=== PATIENT | female | born 1960 | race Caucasian/White ===

== ENCOUNTER 2021-02-09 13:41 | Emergency (ER) | payer BC ==
--- NOTE | 2021-02-09 14:16 | EDM.PDOC ---
ED HPI GENERAL MEDICAL PROBLEM - General Chief Complaint: Chest Pain Stated Complaint: CHEST PRESSURE Time Seen by Provider: 02/09/21 13:50 Source of Information: Reports: Patient, Family History Limitations: Reports: No Limitations - History of Present Illness INITIAL COMMENTS - FREE TEXT/NARRATIVE: 60-year-old female arrives with central chest pressure, substernal, for the last 36 hours. It started early in the morning yesterday and has been persistent. She has had this before but it is resolved much quicker, this time it was lasting too long so she wanted to check. She tried some antacid which did not help. She does not have pain, only substernal pressure, no radiation, no shortness of breath or cough, no diaphoresis. Pressure is a "5 out of 10", it is not worse with movement or activity. She has intermittent dizziness or lightheaded sensation but no other symptoms Onset: Unknown/Unsure (Woke up with symptoms yesterday morning) Duration: Hour(s): (At least 30 hours) Location: Reports: Chest Quality: Reports: Pressure Improves with: Reports: None Worsens with: Reports: None Associated Symptoms: Reports: No Other Symptoms Chest Pain Score (Numeric/FACES): 5 - Related Data Allergies Allergy/AdvReac Type Severity Reaction Status Date / Time No Known Allergies Allergy Verified 02/09/21 13:50 Home Meds: Home Meds *Calcium, Mag, Zinc 1 tab PO DAILY 02/09/21 [History] Cholecalciferol (Vitamin D3) [Vitamin D3] 2,000 unit PO DAILY 02/09/21 [History] Fish Oil/[place]-3 Fatty Acids [Fish Oil 1,000 MG] 1,000 mg PO DAILY 02/09/21 [History] Loratadine [Claritin] 10 mg PO DAILY 02/09/21 [History] Multivit-Min/Folic Acid/Biotin [Hair, Skin and Nails Caplet] 1 tab PO DAILY 02/09/21 [History] Multivitamin 1 tab PO DAILY 02/09/21 [History] Turmeric/Turmeric Root Extract [Turmeric 500 mg Capsule] 1 tab PO DAILY 02/09/21 [History] Past Medical History Musculoskeletal History: Reports: Fracture Social & Family History - Tobacco Use Tobacco Use Status *Q: Heavy Tobacco User Years of Tobacco use: 40 Packs/Tins Daily: 0.5 - Caffeine Use Caffeine Use: Reports: Coffee - Alcohol Use Days Per Week of Alcohol Use: 5 Number of Drinks Per Day: 5 Total Drinks Per Week: 25 - Recreational Drug Use Recreational Drug Use: No ED ROS GENERAL - Review of Systems Review Of Systems: See Below Constitutional: Denies: Fever, Chills, Malaise HEENT: Reports: No Symptoms Respiratory: Denies: Shortness of Breath, Cough, Sputum Cardiovascular: Reports: Lightheadedness, Palpitations (Occasional). Denies: Dyspnea on Exertion ED EXAM, GENERAL - Physical Exam Exam: See Below Exam Limited By: No Limitations General Appearance: Alert, No Apparent Distress Eye Exam: Bilateral Eye: Normal Inspection Head: Atraumatic Neck: Supple, Non-Tender Respiratory/Chest: No Respiratory Distress, Lungs Clear Cardiovascular: Regular Rate, Rhythm, Tachycardia (Mild tachycardia), Extra Beats (Occasional) GI/Abdominal: Soft, Non-Tender Extremities: Normal Inspection. No: Pedal Edema Neurological: Alert, Oriented, No Motor/Sensory Deficits Psychiatric: Anxious Skin Exam: Warm, Dry #1 Interpretation EKG Date: 02/09/21 Time: 13:45 Rhythm: NSR Rate (Beats/Min): 110 QRS: Normal ST-T: Normal Comparison: NA - No Prior EKG EKG Interpretation Comments: EKG shows mild sinus tachycardia, no other abnormality. Course - Vital Signs Last Recorded V/S: Last Vital Signs Temp 97.6 F 02/09/21 13:46 Pulse 85 02/09/21 14:45 Resp 15 02/09/21 14:45 BP 129/76 02/09/21 14:45 Pulse Ox 98 02/09/21 14:45 - Orders/Labs/Meds Orders: Active Orders 24 hr Category Date Time Status EKG 12 Lead [EK] Routine Ther 02/09/21 14:11 Ordered Labs: Laboratory Tests 02/09/21 02/09/21 02/09/21 Range/Units 14:31 14:31 14:31 WBC 10.5 (4.5-11.0) K/uL RBC 4.19 (3.30-5.50) M/uL Hgb 13.7 (12.0-15.0) g/dL Hct 40.9 (36.0-48.0) % MCV 98 (80-98) fL MCH 33 H (27-31) pg MCHC 34 (32-36) % Plt Count 346 (150-400) K/uL Neut % (Auto) 76 H (36-66) % Lymph % (Auto) 16 L (24-44) % [place] % (Auto) 7 H (2-6) % Eos % (Auto) 0 L (2-4) % Baso % (Auto) 0 (0-1) % D-Dimer, Quantitative 355.97 (0.0-500.0) ng/mL Sodium 143 (140-148) mmol/L Potassium 4.2 (3.6-5.2) mmol/L Chloride 101 (100-108) mmol/L Carbon Dioxide 27 (21-32) mmol/L Anion Gap 15.0 H (5.0-14.0) mmol/L BUN 13 (7-18) mg/dL Creatinine 0.8 (0.6-1.0) mg/dL Est Cr Clr Drug Dosing 61.86 mL/min Estimated GFR (MDRD) > 60 (>60) Glucose 126 H (74-106) mg/dL Calcium 9.7 (8.5-10.1) mg/dL Total Bilirubin 0.3 (0.2-1.0) mg/dL AST 18 (15-37) U/L ALT 25 (12-78) U/L Alkaline Phosphatase 140 H (46-116) U/L Troponin I < 0.017 (0.000-0.056) ng/mL Total Protein 7.4 (6.4-8.2) g/dL Albumin 4.0 (3.4-5.0) g/dL Globulin 3.4 (2.3-3.5) g/dL Albumin/Globulin Ratio 1.2 (1.2-2.2) Lipase 95 (73-393) U/L TSH, Ultra Sensitive (0.358-3.740) uIU/mL 02/09/21 Range/Units 14:31 WBC (4.5-11.0) K/uL RBC (3.30-5.50) M/uL Hgb (12.0-15.0) g/dL Hct (36.0-48.0) % MCV (80-98) fL MCH (27-31) pg MCHC (32-36) % Plt Count (150-400) K/uL Neut % (Auto) (36-66) % Lymph % (Auto) (24-44) % [place] % (Auto) (2-6) % Eos % (Auto) (2-4) % Baso % (Auto) (0-1) % D-Dimer, Quantitative (0.0-500.0) ng/mL Sodium (140-148) mmol/L Potassium (3.6-5.2) mmol/L Chloride (100-108) mmol/L Carbon Dioxide (21-32) mmol/L Anion Gap (5.0-14.0) mmol/L BUN (7-18) mg/dL Creatinine (0.6-1.0) mg/dL Est Cr Clr Drug Dosing mL/min Estimated GFR (MDRD) (>60) Glucose (74-106) mg/dL Calcium (8.5-10.1) mg/dL Total Bilirubin (0.2-1.0) mg/dL AST (15-37) U/L ALT (12-78) U/L Alkaline Phosphatase (46-116) U/L Troponin I (0.000-0.056) ng/mL Total Protein (6.4-8.2) g/dL Albumin (3.4-5.0) g/dL Globulin (2.3-3.5) g/dL Albumin/Globulin Ratio (1.2-2.2) Lipase (73-393) U/L TSH, Ultra Sensitive 1.108 (0.358-3.740) uIU/mL - Re-Assessments/Exams Free Text/Narrative Re-Assessment/Exam: 02/09/21 14:16 EKG is basically normal other than mild tachycardia. She will be sent back for two-view chest x-ray, and a CBC, CMP, troponin, D-dimer, lipase and TSH were drawn. 02/09/21 15:24 Symptoms resolved by discharge, no treatment given. Pulse normalized to 85-90 with occasional PVCs. Pressure was gone. Her labs returned very reassuring with a normal troponin, normal TSH, and D-dimer of 355. Chest x-ray showed mild emphysematous changes but no acute findings. CBC electrolytes were normal. Patient is going to start some omeprazole daily and contact her primary provider to discuss a stress test and possibly an EGD. Departure - Departure Time of Disposition: 15:39 Disposition: Home, Self-Care 01 Clinical Impression: Atypical chest pain - Discharge Information Instructions: Nonspecific Chest Pain, Adult, [id number] Referrals: PCP,None [Primary Care Provider] - Forms: ED Department Discharge Care Plan Goals: Consider daily omeprazole 20 mg for several weeks, and recheck if not improving satisfactorily for further test such as an EGD or stress test. Otherwise increase activity as tolerated and recheck if chest pain occurs while exercising. Try to decrease smoking to stop further lung damage. Sepsis Event Note (ED) - Evaluation Sepsis Screening Result: No Definite Risk - Focused Exam Vital Signs: Vital Signs Temp Pulse Resp BP Pulse Ox 02/09/21 14:45 85 15 129/76 98 02/09/21 13:46 97.6 F 114 H 22 H 144/76 H 98 - My Orders Last 24 Hours: My Active Orders 02/09/21 14:11 EKG 12 Lead [EK] Routine - Assessment/Plan Last 24 Hours: My Active Orders 02/09/21 14:11 EKG 12 Lead [EK] Routine
--- NOTE | 2021-02-09 14:43 | CR ---
CHEST: 2 view CLINICAL HISTORY:Dyspnea COMPARISON:None FINDINGS: The lungs are hyperaerated. The heart size, pulmonary vascularity and hilar structures are normal. No infiltrate effusion or pneumothorax is seen. There are atherosclerotic changes in the aorta. IMPRESSION: No acute cardiopulmonary process. Emphysematous changes
== END 2021-02-09 15:39 | disposition home or self-care (01) ==
LOC: JP.ED 13:41 → MERGE 13:41 → JP.ED 15:39
DX: R07.89 Other chest pain (principal); R00.0 Tachycardia, unspecified; Z72.0 Tobacco use
CPT/HCPCS: 36415; 71046; 71046-26; 80053; 83690; 84443; 84484; 85025; 85379; 93005; 99283; 99285-25

== ENCOUNTER 2024-07-15 13:48 | Emergency (ER) | payer OTHER ==
[2024-07-15 14:24] LABS: BASOPHILS ABSOLUTE AUTO 0.05 K/uL (0.00-0.10); BASOPHILS PERCENT AUTO 0.5 % (0.1-1.3); EOSINOPHILS ABSOLUTE AUTO 0.04 K/uL (0.00-0.40); EOSINOPHILS PERCENT AUTO 0.4 % (0.0-5.4); HEMATOCRIT 38.3 % (34.3-46.0); HEMOGLOBIN 13.5 g/dL (11.2-15.5); IMMATURE GRAN ABSOLUTE AUTO 0.03 K/uL (0.00-0.23); IMMATURE GRAN PERCENT AUTO 0.3 % (0.0-0.7); LYMPHOCYTES ABSOLUTE AUTO 2.44 K/uL (0.8-3.3); LYMPHOCYTES PERCENT AUTO 23.9 % (11.4-47.7); MEAN CORPUSCULAR HEMOGLOBIN 33.8 pg (31.6-35.5); MEAN CORPUSCULAR HGB CONC 35.2 g/dL (31.6-35.5); MEAN CORPUSCULAR VOLUME 95.8 fL (81.4-99.0); MONOCYTES ABSOLUTE AUTO 0.93 K/uL (0.20-0.90); MONOCYTES PERCENT AUTO 9.1 % (3.3-12.6); NEUTROPHILS PERCENT AUTO 65.8 % (40.0-78.1); PLATELET COUNT,PLT 313 K/uL (130-375); WHITE BLOOD CELL COUNT,WBC 10.2 K/uL (3.2-11.0)
[2024-07-15] MEDS: Aspirin 81 MG Tab.Chew PO ONE (14:40)
[2024-07-15 14:48] LABS: BLOOD UREA NITROGEN,BUN 11 mg/dL (7-18); CALCIUM 8.7 mg/dL (8.5-10.1); CARBON DIOXIDE,CO2 27 mmol/L (21-32); CHLORIDE,CL 100 mmol/L (100-108); CREATININE 0.8 mg/dL (0.6-1.0); EST CRCL DRUG DOSING (CG) 57.58 mL/min; ESTIMATED GFR 83 mL/min (>60); GLUCOSE RANDOM 114 mg/dL (74-106); POTASSIUM,K 3.7 mmol/L (3.6-5.2); SODIUM,NA 136 mmol/L (140-148)
[2024-07-15 14:49] LABS: ANION GAP 12.7 mmol/L (5.0-14.0); TROPONIN I HIGH SENSITIVITY < 4.0 pg/mL (<=60.3)
== END 2024-07-15 15:36 | disposition home or self-care (01) ==
LOC: JP.ED 13:48
DX: R07.89 Other chest pain (principal); Z79.899 Other long term (current) drug therapy; F17.210 Nicotine dependence, cigarettes, uncomplicated
CPT/HCPCS: 36415; 71046; 80048; 84484; 85025; 85379; 93005; 99285; A9270